=== PATIENT | female | born 1940 ===

== ENCOUNTER 2018-06-08 06:59 | Day surgery (SDC) | payer OTHER ==
[~2018-06-08 06:59] MED LIST: B-COMPLEX WITH1 EAC1 PO; CARDURA1 MG PO; HUMALOG100 UNIT/1; LOSARTAN POTASS50 MG PO; MAGNESIUM400 MG PO; METOPROLOL SUCC50 MG PO; NEURONTIN800 MG PO; RAZADYNE ER16 MG PO; SYNTHROID125 MCG PO; VITAMIN D-32000 UNIT PO; XARELTO20 MG PO
== END 2018-06-08 11:35 | disposition home or self-care (01) ==
LOC: CIR.AMB 06:59
DX: M65.841 Other synovitis and tenosynovitis, right hand (principal)

== ENCOUNTER 2021-12-31 19:32 | Emergency (ER) | payer OTHER ==
[~2021-12-31] VITALS: Ht 167.6 cm; Wt 92.5 kg
== END 2021-12-31 21:32 | disposition home or self-care (01) ==
LOC: ER 19:32
DX: S92.912A Unspecified fracture of left toe(s), initial encounter for closed fracture (principal); W19.XXXA Unspecified fall, initial encounter; Y92.9 Unspecified place or not applicable; S80.02XA Contusion of left knee, initial encounter; S70.01XA Contusion of right hip, initial encounter